=== PATIENT | male | born 1965 | race Caucasian/White ===

== ENCOUNTER 2018-01-29 11:35 | Observation (INO) | payer BC ==
[~2018-01-29] VITALS: Ht 182.9 cm; Wt 128.8 kg
[~2018-01-29 11:35] MED LIST: FENOFIBRATE145 MG PO; METFORMIN HCL500 MG PO; TRIBENZOR 40-11 EAC1 PO
[2018-01-29] MEDS ORDERED: ASPIRIN 81 MG CHEW TAB PO ONE ×2 (12:00→13:30)
[2018-01-29 12:22] LABS: BASOPHILS # (AUTO) 0.1 (0.0-0.1); BASOPHILS % 0.7 % (0.0-1.0); EOSINOPHILS # (AUTO) 0.2 (0.0-0.4); EOSINOPHILS % 1.6 % (0.0-6.0); HEMATOCRIT 39.5 % (38.2-49.6); HEMOGLOBIN 13.3 g/dL (14.0-18.0); LYMPHOCYTES # (AUTO) 2.9 (1.0-3.2); LYMPHOCYTES % 29.7 % (18.0-39.1); MEAN CORPUSCULAR HEMOGLOBIN 27.8 pg (28-32); MEAN CORPUSCULAR HGB CONC 33.7 g/dL (31-35); MEAN CORPUSCULAR VOLUME 82.6 fL (81-99); MONOCYTES # (AUTO) 0.9 (0.2-0.8); MONOCYTES % 9.2 % (4.4-11.3); NEUTROPHILS # (AUTO) 5.6 (2.1-6.9); NEUTROPHILS % 58.5 % (38.7-80.0); PLATELET COUNT 277 x10e3/uL (140-360); RED BLOOD COUNT 4.78 x10e6/uL (4.3-5.7); RED CELL DISTRIBUTION WIDTH 14.9 % (11.7-14.4)
--- NOTE | 2018-01-29 12:36 | Diagnostic Imaging Report ---
PROCEDURE: A single AP view of the chest. COMPARISON: None. INDICATIONS: CHEST PAIN FINDINGS: Lines/tubes: None. Lungs: The lungs are well inflated and clear. There is no evidence of pneumonia or pulmonary edema. Pleura: There is no pleural effusion or pneumothorax. Heart and mediastinum: The heart and the mediastinum are unremarkable. Bones: No acute bony abnormality. IMPRESSION: 1. No acute cardiopulmonary abnormalities. Bassem Denis M.D. Dictated by: Bassem Denis M.D. on 01/29/2018 at 12:41 Electronically approved by: Bassem Denis M.D. on 01/29/2018 at 12:41
[2018-01-29 12:43] LABS: ALANINE AMINOTRANSFERASE 42 IU/L (0-55); ALBUMIN 3.8 g/dL (3.5-5.0); ALKALINE PHOSPHATASE 36 IU/L (40-150); ANION GAP 15.9 mmol/L (8-16); BLOOD UREA NITROGEN 25 mg/dL (7-26); BUN/CREATININE RATIO 16 (6-25); CARBON DIOXIDE 24 mmol/L (22-29); CHLORIDE 104 mmol/L (98-107); CREATINE KINASE 67 IU/L (30-200); CREATININE, SERUM 1.54 mg/dL (0.72-1.25); EST GLOMERULAR FILTRATION RATE 48 ML/MIN (60-); GLUCOSE 154 mg/dL (74-118); POTASSIUM 3.9 mmol/L (3.5-5.1); SODIUM 140 mmol/L (136-145)
[2018-01-29] MEDS ORDERED: JANUVIA100 MG (14:21)
[2018-01-29] MEDS ORDERED: [UNRECOGNIZED DRUG - OTHER] (14:21)
[2018-01-29] MEDS ORDERED: FENOFIBRATE160 MG (14:21)
[2018-01-29] MEDS ORDERED: METFORMIN HCL500 M1 (14:21)
[2018-01-29 14:47] VITALS: BP 127/77
[2018-01-29 15:00] VITALS: BP 110/76
[2018-01-29 19:30] VITALS: BP 104/70
[2018-01-29 20:00] VITALS: BP 104/70
[2018-01-29 20:58] LABS: CREATINE KINASE 61 IU/L (30-200)
[2018-01-30] VITALS (8 sets, daily range): BP systolic 113–165; BP diastolic 68–86
[2018-01-30 05:53] LABS: CREATINE KINASE 54 IU/L (30-200)
[2018-01-30 06:09] LABS: CHOL/HDL RATIO 4.6 (3.9-4.7)
[2018-01-30] MEDS ORDERED: FENOFIBRATE 145 MG TAB PO SCH (09:00)
[2018-01-30] MEDS ORDERED: ASPIRIN 81 MG ENTERIC COATED PO SCH (09:00)
[2018-01-30] MEDS ORDERED: OLMESARTAN 20 MG TAB PO SCH (09:00)
[2018-01-30] MEDS ORDERED: AMLODIPINE BESYLATE 10 MG TAB PO SCH (09:00)
[2018-01-30] MEDS ORDERED: HYDROCHLOROTHIAZIDE 25 MG TAB PO SCH (09:00)
[2018-01-30] MEDS ORDERED: SITAGLIPTIN 100 MG TAB PO SCH (09:00)
--- NOTE | 2018-01-30 13:49 | Consultation ---
DATE OF CONSULTATION: January 30, 2018 CARDIOLOGY CONSULTATION REQUESTING PHYSICIAN: Dr. Narayan Galvan. REASON FOR CONSULTATION: Chest pain. HISTORY OF PRESENT ILLNESS: This is a 52-year-old male with history of diabetes mellitus, hypertension and hyperlipidemia, who presented with complaints of chest pain. The patient reports he developed sharp left-sided chest pain Friday evening. He describes the pain as 6/10 in severity, lasting 10 to 15 seconds at a time. There was no association with shortness of breath, nausea, diaphoresis and the pain does not radiate. The pain has been occurring intermittently since onset. He therefore presented to the ER for further evaluation. He denies any edema, orthopnea, PND, lightheadedness, or palpitations. REVIEW OF SYSTEMS: Negative except as per HPI. PAST MEDICAL HISTORY 1. Hypertension. 2. Diabetes mellitus. 3. Hyperlipidemia. 4. History of renal cell cancer, status post right nephrectomy. 5. Colon cancer, status post partial colectomy. PAST SURGICAL HISTORY 1. Right nephrectomy. 2. Partial left nephrectomy. 3. Partial colectomy. ALLERGIES: NO KNOWN DRUG ALLERGIES. MEDICATIONS: Please see EMR. SOCIAL HISTORY: Denies tobacco, alcohol, or illicit drugs. FAMILY HISTORY: Pertinent for mother with 3-vessel CABG in her 70s. PHYSICAL EXAMINATION VITAL SIGNS: Temperature 98 degrees, pulse 75, respiratory rate 18, blood pressure 115/74, oxygen saturation 96% on room air. GENERAL: Obese gentleman, in no acute distress, well developed, well nourished. HEENT: Normocephalic, atraumatic. Pupils equal. No scleral icterus. NECK: Supple. No thyromegaly or cervical lymphadenopathy. No carotid bruits. LUNGS: Clear to auscultation bilaterally. No wheezes or crackles. CARDIOVASCULAR: Normal rate, regular rhythm. No murmur. Normal S1 and S2. ABDOMEN: Soft, nontender. EXTREMITIES: No edema. NEURO: Nonfocal exam. LABORATORY DATA: WBC 9.63, hemoglobin 13.3, hematocrit 39.5, platelets 277. Sodium 140, potassium 3.9, chloride 104, CO2 of 24, BUN 25, creatinine 1.54. Troponin less than 0.001. Cholesterol 170, triglycerides 139, LDL 105, HDL 37. Chest x-ray, no acute cardiopulmonary abnormalities. TELEMETRY: Normal sinus rhythm. IMPRESSION 1. Chest pain. 2. Diabetes mellitus. 3. Hypertension. 4. Hyperlipidemia. RECOMMENDATIONS: Patient is ruled out for myocardial infarction with serial cardiac biomarkers. Given patient's multiple risk factors, we will proceed with exercise treadmill nuclear stress test. Obtain echocardiogram for further evaluation. Continue current cardiac medications otherwise. Thank for this consult. We will continue to follow. Job#: [id number] [id number]
[2018-01-30] MEDS: METFORMIN HCL 500 MG TAB CR PO SCH ×2 (15:36→15:37)
--- NOTE | 2018-01-30 16:44 | Cardiology Report ---
DATE OF STUDY: January 30, 2018 EXERCISE NUCLEAR STRESS TEST INDICATIONS: Chest pain. Patient was stressed using standard Barry treadmill protocol. Rest and stress Myoview imaging was obtained. Resting heart rate 97 beats and resting blood pressure 108/70. Resting electrocardiogram showed sinus rhythm with right bundle branch block without ST changes. Patient exercised for 6 minutes and 1 second, achieving 7 METS of oxygen consumption. Maximum heart rate 152 beats a minute, corresponded to 89% predicted. Maximum blood pressure 158/122. No EKG changes reported. No chest pain however the patient did have exercise limiting dyspnea on peak exertion. Nuclear imaging at rest shows minor decrease in tracer uptake and the rest images in the inferior zones. Stress imaging shows minor decrease in tracer uptake in the left ventricle apex. LV ejection fraction was mildly reduced. CONCLUSIONS 1. Abnormal treadmill stress test with hypertensive response. 2. Abnormal myocardial perfusion study with mild apical ischemia. 3. Mildly depressed LV systolic function calculated ejection fraction of 41%. Job#: [id number] OBED
[2018-02-04] MEDS ORDERED: JANUVIA100 MG PO (10:46)
[2018-02-04] MEDS ORDERED: METFORMIN HCL500 M1 PO (10:46)
[2018-02-04] MEDS ORDERED: [UNRECOGNIZED DRUG - OTHER] PO (10:46)
[2018-02-04] MEDS ORDERED: FENOFIBRATE145 MG PO (10:46)
== END 2018-01-30 16:56 | disposition home or self-care (01) ==
LOC: ER 11:35 → ERHOLD 13:16 → IMCU 14:32
DX: R07.89 Other chest pain (principal); E11.9 Type 2 diabetes mellitus without complications; I10 Essential (primary) hypertension; E78.5 Hyperlipidemia, unspecified; C64.9 Malignant neoplasm of unspecified kidney, except renal pelvis
CPT/HCPCS: 36415 ×2; 71045; 78452; 80053; 80061; 82550 ×2; 82553 ×2; 82948 ×2; 84484 ×2; 85025; 93005; 93017; 93306; 99284; A9502; G0378 ×2

== ENCOUNTER → 2020-10-20 | Day surgery (SDC) | payer BC ==
[2020-10-18 10:38] LABS: BASOPHILS # (AUTO) 0.1 (0.0-0.1); BASOPHILS % 1.1 % (0.0-1.0); EOSINOPHILS # (AUTO) 0.2 (0.0-0.4); HEMATOCRIT 44.3 % (38.2-49.6); HEMOGLOBIN 14.1 g/dL (14.0-18.0); LYMPHOCYTES # (AUTO) 2.7 (1.0-3.2); LYMPHOCYTES % 28.2 % (18.0-39.1); MEAN CORPUSCULAR HEMOGLOBIN 25.8 pg (28-32); MEAN CORPUSCULAR HGB CONC 31.8 g/dL (31-35); MEAN CORPUSCULAR VOLUME 81.1 fL (81-99); MONOCYTES # (AUTO) 1.1 (0.2-0.8); MONOCYTES % 11.8 % (4.4-11.3); NEUTROPHILS # (AUTO) 5.3 (2.1-6.9); NEUTROPHILS % 56.5 % (38.7-80.0); PLATELET COUNT 252 x10e3/uL (140-360); RED BLOOD COUNT 5.46 x10e6/uL (4.3-5.7); RED CELL DISTRIBUTION WIDTH 14.9 % (11.7-14.4)
[2020-10-18 10:57] LABS: ANION GAP 14.2 mmol/L (8-16); CALCIUM 9.7 mg/dL (8.4-10.2); CREATININE, SERUM 1.71 mg/dL (0.72-1.25); POTASSIUM 4.2 mmol/L (3.5-5.1)
[~2020-10-20] MED LIST changes: +BUPIVACAINE 0.25% 30ML SDV ONE; +FENOFIBRATE160 MG; +JANUVIA100 MG; +JANUVIA100 MG PO; +JARDIANCE10 MG PO; +LIDOCAINE 1% W/EPINEPHRINE 20 ML VIAL ONE; +LIDOCAINE HCL 1% LOCAL INJ 20 ML VIAL ONE; +METFORMIN HCL500 M1; +METFORMIN HCL500 M1 PO; +[UNRECOGNIZED DRUG - OTHER]; +[UNRECOGNIZED DRUG - OTHER] PO
[2020-10-20 10:24] VITALS: BP 103/57
== END | disposition home or self-care (01) ==
LOC: OR 05:59
PROVIDERS: ATTEND Surgery
DX: D17.9 Benign lipomatous neoplasm, unspecified (principal); I10 Essential (primary) hypertension; E78.5 Hyperlipidemia, unspecified; K76.0 Fatty (change of) liver, not elsewhere classified; I49.3 Ventricular premature depolarization; I45.10 Unspecified right bundle-branch block; Z01.810 Encounter for preprocedural cardiovascular examination; Z01.812 Encounter for preprocedural laboratory examination; Z20.822 Contact with and (suspected) exposure to COVID-19; Z79.84 Long term (current) use of oral hypoglycemic drugs; Z85.528 Personal history of other malignant neoplasm of kidney
CPT/HCPCS: 23073; 36415 ×2; 80048; 82948; 85025; 88304; 93005; U0002; J2001

== ENCOUNTER 2021-04-05 07:48 | Inpatient (IN) | payer BC ==
[2021-04-03 11:10] LABS: BASOPHILS # (AUTO) 0.1 (0.0-0.1); BASOPHILS % 0.8 % (0.0-1.0); EOSINOPHILS # (AUTO) 0.2 (0.0-0.4); HEMATOCRIT 47.7 % (38.2-49.6); HEMOGLOBIN 15.2 g/dL (14.0-18.0); LYMPHOCYTES # (AUTO) 3.1 (1.0-3.2); LYMPHOCYTES % 30.3 % (18.0-39.1); MEAN CORPUSCULAR HEMOGLOBIN 26.4 pg (28-32); MEAN CORPUSCULAR HGB CONC 31.9 g/dL (31-35); MONOCYTES % 9.4 % (4.4-11.3); NEUTROPHILS # (AUTO) 5.9 (2.1-6.9); PLATELET COUNT 309 x10e3/uL (140-360); RED BLOOD COUNT 5.75 x10e6/uL (4.3-5.7); RED CELL DISTRIBUTION WIDTH 14.8 % (11.7-14.4)
[2021-04-03 11:32] LABS: ANION GAP 15.2 mmol/L (8-16); CALCIUM 9.9 mg/dL (8.4-10.2); CREATININE, SERUM 1.7 mg/dL (0.72-1.25); POTASSIUM 4.2 mmol/L (3.5-5.1)
[~2021-04-05] VITALS: Ht 182.9 cm; Wt 136.1 kg
[~2021-04-05 07:48] MED LIST changes: -LIDOCAINE 1% W/EPINEPHRINE 20 ML VIAL ONE; -LIDOCAINE HCL 1% LOCAL INJ 20 ML VIAL ONE
[2021-04-05] MEDS ORDERED: ACETAMINOPHEN 1000 MG/100 ML 100 ML IV ONE (12:06)
[2021-04-05] MEDS ORDERED: HYDROCODONE/APAP 7.5MG-325MG 1 EA TAB PO PRN (12:15)
[2021-04-05] MEDS ORDERED: NALOXONE HCL INJ 0.4 MG/ML AMP IV PRN (12:15)
[2021-04-05] MEDS ORDERED: ONDANSETRON HCL INJ 2MG/ML 2ML 2 MG/ML VIAL IV PRN (12:15)
[2021-04-05] MEDS: HYDROMORPHONE 0.2MG/ML-SOD CHL 30ML PCA SYRINGE IV PRN ×2 (12:27→20:00)
[2021-04-05] MEDS ORDERED: FENTANYL CITRATE/PF 100MCG/2 ML INJ ONE ×2 (12:58→15:51)
[2021-04-05 14:46] VITALS: BP 117/79
[2021-04-05] MEDS ORDERED: DEXTROSE 50% SYRINGE 50 ML IV PRN (15:00)
[2021-04-05] MEDS: SODIUM CHLORIDE 0.9% 1000ML 1,000 ML IV SCH (15:38)
[2021-04-05 15:41] VITALS: BP 117/79
[2021-04-05] MEDS ORDERED: MIDAZOLAM HCL 2 MG/2 ML VIAL ONE (15:51)
[2021-04-05] MEDS ORDERED: ACETAMINOPHEN 1000 MG/100 ML IV PRN (17:00)
[2021-04-05] MEDS: METFORMIN HCL 500 MG TAB CR PO SCH (17:30)
[2021-04-05] MEDS: INSULIN REGULAR, HUMAN 100 UNIT/1 ML SQ SCH (17:30)
[2021-04-05] MEDS: Cefazolin 1 GM in SODIUM CHLORIDE 0.9% 50ML 50 ML IV SCH (17:30)
[2021-04-05 18:30] VITALS: BP 110/74
[2021-04-05 20:00] VITALS: BP 110/75
[2021-04-05 22:11] VITALS: BP 110/75
[2021-04-06] VITALS (8 sets, daily range): BP systolic 122–142; BP diastolic 79–92
[2021-04-06] MEDS: SODIUM CHLORIDE 0.9% 1000ML 1,000 ML IV SCH ×3 (00:10→18:29)
[2021-04-06] MEDS: INSULIN REGULAR, HUMAN 100 UNIT/1 ML SQ SCH ×5 (00:10→23:40)
[2021-04-06] MEDS: Cefazolin 1 GM in SODIUM CHLORIDE 0.9% 50ML 50 ML IV SCH (02:33)
[2021-04-06 06:09] LABS: BASOPHILS # (AUTO) 0.1 (0.0-0.1); BASOPHILS % 0.4 % (0.0-1.0); EOSINOPHILS % 0.2 % (0.0-6.0); HEMOGLOBIN 14.2 g/dL (14.0-18.0); LYMPHOCYTES # (AUTO) 2.3 (1.0-3.2); LYMPHOCYTES % 16.8 % (18.0-39.1); MEAN CORPUSCULAR HEMOGLOBIN 26.5 pg (28-32); MEAN CORPUSCULAR HGB CONC 31.6 g/dL (31-35); MEAN CORPUSCULAR VOLUME 84.1 fL (81-99); MONOCYTES # (AUTO) 1.3 (0.2-0.8); MONOCYTES % 9.7 % (4.4-11.3); NEUTROPHILS # (AUTO) 9.7 (2.1-6.9); NEUTROPHILS % 72.3 % (38.7-80.0); PLATELET COUNT 256 x10e3/uL (140-360); RED BLOOD COUNT 5.35 x10e6/uL (4.3-5.7); RED CELL DISTRIBUTION WIDTH 14.9 % (11.7-14.4)
[2021-04-06 07:09] LABS: ANION GAP 16.1 mmol/L (8-16); CALCIUM 9.3 mg/dL (8.4-10.2); CREATININE, SERUM 1.69 mg/dL (0.72-1.25); POTASSIUM 4.1 mmol/L (3.5-5.1)
[2021-04-06] MEDS: METFORMIN HCL 500 MG TAB CR PO SCH ×2 (08:47→16:49)
[2021-04-06] MEDS ORDERED: [UNRECOGNIZED DRUG - OTHER] PO SCH (09:00)
[2021-04-06] MEDS: OLMESARTAN 20 MG TAB PO SCH (09:11)
[2021-04-06] MEDS: AMLODIPINE BESYLATE 10 MG TAB PO SCH (09:12)
[2021-04-06] MEDS: HYDROCHLOROTHIAZIDE 25 MG TAB PO SCH (09:12)
[2021-04-07] VITALS (7 sets, daily range): BP systolic 137–161; BP diastolic 83–113
[2021-04-07] MEDS: SODIUM CHLORIDE 0.9% 1000ML 1,000 ML IV SCH ×2 (03:09→13:29)
[2021-04-07] MEDS: INSULIN REGULAR, HUMAN 100 UNIT/1 ML SQ SCH ×3 (05:12→18:18)
[2021-04-07] MEDS: OLMESARTAN 20 MG TAB PO SCH (08:17)
[2021-04-07] MEDS: HYDROCHLOROTHIAZIDE 25 MG TAB PO SCH (08:17)
[2021-04-07] MEDS: METFORMIN HCL 500 MG TAB CR PO SCH ×2 (08:17→18:14)
[2021-04-07] MEDS: AMLODIPINE BESYLATE 10 MG TAB PO SCH (08:17)
[2021-04-07] MEDS ORDERED: POTASSIUM CHLORIDE 20 MEQ TAB CR PO ONE (08:30)
[2021-04-08] VITALS: BP 139/79
[2021-04-08] MEDS: SODIUM CHLORIDE 0.9% 1000ML 1,000 ML IV SCH ×2 (00:19→09:28)
[2021-04-08 04:00] VITALS: BP 131/86
[2021-04-08] MEDS: INSULIN REGULAR, HUMAN 100 UNIT/1 ML SQ SCH ×3 (06:00→11:20)
[2021-04-08 06:49] LABS: BASOPHILS # (AUTO) 0.1 (0.0-0.1); BASOPHILS % 0.4 % (0.0-1.0); EOSINOPHILS # (AUTO) 0.1 (0.0-0.4); EOSINOPHILS % 1.1 % (0.0-6.0); HEMATOCRIT 43.9 % (38.2-49.6); HEMOGLOBIN 14.2 g/dL (14.0-18.0); LYMPHOCYTES # (AUTO) 2.4 (1.0-3.2); LYMPHOCYTES % 18.1 % (18.0-39.1); MEAN CORPUSCULAR HEMOGLOBIN 26.3 pg (28-32); MEAN CORPUSCULAR HGB CONC 32.3 g/dL (31-35); MEAN CORPUSCULAR VOLUME 81.4 fL (81-99); MONOCYTES # (AUTO) 1.7 (0.2-0.8); NEUTROPHILS # (AUTO) 8.6 (2.1-6.9); NEUTROPHILS % 66.6 % (38.7-80.0); PLATELET COUNT 228 x10e3/uL (140-360); RED BLOOD COUNT 5.39 x10e6/uL (4.3-5.7); RED CELL DISTRIBUTION WIDTH 14.6 % (11.7-14.4)
[2021-04-08 07:10] VITALS: BP 131/86
[2021-04-08 07:23] LABS: ALBUMIN 3.1 g/dL (3.5-5.0); ALBUMIN/GLOBULIN RATIO 0.7 (0.8-2.0); ANION GAP 18.7 mmol/L (8-16); CALCIUM 9.1 mg/dL (8.4-10.2); CREATININE, SERUM 1.22 mg/dL (0.72-1.25); POTASSIUM 3.7 mmol/L (3.5-5.1)
[2021-04-08 07:48] VITALS: BP 135/80
[2021-04-08] MEDS ORDERED: HYDROMORPHONE 1MG/1ML INJ IV PRN (08:00)
[2021-04-08] MEDS: HYDROCHLOROTHIAZIDE 25 MG TAB PO SCH (08:18)
[2021-04-08] MEDS: OLMESARTAN 20 MG TAB PO SCH (08:18)
[2021-04-08] MEDS: METFORMIN HCL 500 MG TAB CR PO SCH (08:18)
[2021-04-08] MEDS: AMLODIPINE BESYLATE 10 MG TAB PO SCH (08:19)
[2021-04-08 11:23] VITALS: BP 129/82
== END 2021-04-08 14:30 | disposition home or self-care (01) | DRG 355 ==
LOC: OR 07:48 → PACU V 12:04 → MED/SURG 14:30
PROVIDERS: ADMIT Surgery; ATTEND Surgery
PROC: 0WUF0JZ Supplement Abdominal Wall with Synthetic Substitute, Open Approach (ICD-10-PCS; principal; 2021-04-05 09:00)
DX: K43.2 Incisional hernia without obstruction or gangrene (principal); I10 Essential (primary) hypertension; G47.33 Obstructive sleep apnea (adult) (pediatric); Z20.822 Contact with and (suspected) exposure to COVID-19
CPT/HCPCS: 36415; 80048; 80053; 82948; 85025; 93005; 96361; C1781; J0690; J2250; J3010; J7030; U0002